=== PATIENT | female | born 1965 | race Caucasian/White ===

== ENCOUNTER 2017-12-28 01:04 | Emergency (ER) | payer MEDICAID ==
[~2017-12-28] VITALS: Ht 175.3 cm; Wt 81.8 kg
[2017-12-28] MEDS ORDERED: OxyCODONE HCL/ACETAMINOPHEN 5-325 MG TABLET PO ONE (04:30)
[2017-12-28 05:00] VITALS: BP 124/76
== END 2017-12-28 05:06 | disposition home or self-care (01) ==
LOC: EMS 01:05
DX: L02.212 Cutaneous abscess of back [any part, except buttock and flank] (principal); E78.00 Pure hypercholesterolemia, unspecified; F17.210 Nicotine dependence, cigarettes, uncomplicated
CPT/HCPCS: 99283

== ENCOUNTER 2022-06-22 07:41 | Emergency (ER) | payer MEDICAID, OTHER ==
[~2022-06-22] VITALS: Ht 162.6 cm; Wt 79.5 kg
[2022-06-22] MEDS ORDERED: KETOROLAC TROMETHAMINE 30 MG/ML VIAL IM ONE (08:30)
[2022-06-22] MEDS ORDERED: ACETAMINOPHEN 500 MG TABLET PO ONE (08:30)
[2022-06-22 10:15] VITALS: BP 109/72
== END 2022-06-22 10:57 | disposition home or self-care (01) ==
LOC: EMS 07:41
DX: M79.642 Pain in left hand (principal); M79.641 Pain in right hand; R20.2 Paresthesia of skin; E78.00 Pure hypercholesterolemia, unspecified; M19.042 Primary osteoarthritis, left hand; M19.041 Primary osteoarthritis, right hand; F17.210 Nicotine dependence, cigarettes, uncomplicated; Z98.890 Other specified postprocedural states
CPT/HCPCS: 99283; 73130 ×2; 96372; J1885

== ENCOUNTER 2023-06-23 05:40 | Emergency (ER) | payer OTHER ==
[~2023-06-23] VITALS: Ht 167.6 cm; Wt 79.5 kg
[2023-06-23 05:51] VITALS: TEMP 98.9
[2023-06-23 06:45] LABS: BASOPHILS % (AUTO) 0.5 % (0.0-2.0); EOSINOPHILS % (AUTO) 0.6 % (1.0-6.0); HEMOGLOBIN 11.8 g/dL (12.0-16.0); LYMPHOCYTES # (AUTO) 1.2 K/uL (1.0-4.8); MEAN CORPUSCULAR HEMOGLOBIN 29.7 pg (26.0-34.0); MEAN CORPUSCULAR HGB CONC 33.7 G/dL (31.0-37.0); MEAN CORPUSCULAR VOLUME 88 fL (80-100); MONOCYTES % (AUTO) 16.3 % (2.0-9.0); NEUTROPHILS # (AUTO) 3.9 K/uL (1.8-7.7); NEUTROPHILS % (AUTO) 63.6 % (40.0-70.0); PLATELET COUNT (AUTO) 199 K/uL (150-450); RED BLOOD CELL COUNT(AUTO) 3.97 MIL/uL (4.00-5.20); RED CELL DISTRIBUTION WIDTH 13.4 % (11.5-14.5); WHITE BLOOD COUNT (AUTO) 6.1 K/uL (4.5-11.0)
[2023-06-23] MEDS: SODIUM CHLORIDE 0.9% 1,000 ML IV ONE (06:50)
[2023-06-23] MEDS: ONDANSETRON HCL 4 MG/2 ML VIAL IVP ONE ×2 (06:50→09:14)
[2023-06-23] MEDS: MORPHINE SULFATE 2 MG/ML SYRINGE IVP ONE (06:51)
[2023-06-23 07:04] LABS: CALCIUM, TOTAL 9.1 mg/dL (8.8-10.5); CREATININE 1.45 mg/dL (0.60-1.30)
[2023-06-23 07:10] LABS: ALBUMIN 3.5 g/dL (3.4-5.0); TOTAL PROTEIN, SERUM 7.2 g/dL (6.4-8.2)
[2023-06-23 07:14] LABS: TROPONIN I-HIGH SENSITIVITY 5 ng/L (<51)
[2023-06-23 08:43] VITALS: BP 129/57; PULSE 61; RESP 17
[2023-06-23] MEDS ORDERED: ONDA-104 PO (09:04)
== END 2023-06-23 09:23 | disposition home or self-care (01) ==
LOC: EMS 05:40
DX: R07.89 Other chest pain (principal); R10.12 Left upper quadrant pain; R11.2 Nausea with vomiting, unspecified; M19.90 Unspecified osteoarthritis, unspecified site; E78.00 Pure hypercholesterolemia, unspecified; F17.210 Nicotine dependence, cigarettes, uncomplicated; Z98.890 Other specified postprocedural states
CPT/HCPCS: 99285; 74176; 96374; 71045; 96361; 96375; 80053; 83690; 84484; 85025; 36415; 93005; 96376; J2270; J2405; J7030